=== PATIENT | male | born 1955 | race Caucasian/White ===

== ENCOUNTER → 2016-11-07 | Outpatient (CLI) | payer OTHER ==
[~2016-11-07] MED LIST: CARVEDILOL3.125 M1 PO; FLEXERIL10 MG PO; JANUVIA50 MG PO; LIPITOR10 MG PO; MEDROL 4MG. DOSE4 MG PO; METFORMIN1000 MG PO; MULTI VITAMINS1 TA1 PO; PREDNISONE 10MG10 MG PO; RAMIPRIL10 MG PO; VICODIN 7.5/501 EACH PO; ZYRTEC10 M3 PO
[2016-11-07 10:25] LABS: HEMOGLOBIN 13.1 g/dL (14.1-18.0); LYMPH # 1.6 K/mm3 (0.7-4.5); LYMPH % 16.6 % (10-50)
== END ==
LOC: LAB 10:21
PROVIDERS: Internal Medicine
DX: R04.0 Epistaxis (principal)

== ENCOUNTER 2017-04-16 12:01 | Outpatient (CLI) | payer OTHER ==
[2017-04-16 10:26] LABS: LYMPH # 2.3 K/mm3 (0.7-4.5); LYMPH % 19.7 % (10-50)
[2017-04-16 10:37] LABS: HEMOGLOBIN 17.8 g/dL (14.1-18.0)
[2017-04-16 10:52] LABS: BUN 33 mg/dL (7-18)
[2017-04-16 10:58] LABS: GFR (ESTIMATED) 52 ML/MIN (>60)
[2017-04-16 12:20] VITALS: BP 103/71
[2017-04-16 12:32] VITALS: BP 95/80
[2017-04-16 13:20] VITALS: BP 110/78
[2017-04-16 14:20] VITALS: BP 89/58
[2017-04-16] MEDS ORDERED: AMARYL 4MG. TAB4 MG PO (15:11)
[2017-04-16] MEDS ORDERED: GLYBURIDE2.5 MG PO (15:12)
[2017-04-16 15:20] VITALS: BP 102/68
[2017-04-16 15:45] VITALS: BP 107/68
== END 2017-04-16 15:50 | disposition home or self-care (01) ==
LOC: COP 12:01
PROVIDERS: Internal Medicine
DX: R07.9 Chest pain, unspecified (principal); R10.13 Epigastric pain; R11.2 Nausea with vomiting, unspecified; K29.70 Gastritis, unspecified, without bleeding; E86.0 Dehydration
CPT/HCPCS: J2405